=== PATIENT | male | born 1980 | race Caucasian/White ===

== ENCOUNTER 2017-08-04 14:19 | Emergency (ER) | payer OTHER ==
[2017-08-04] MEDS ORDERED: Diphtheria,Pertussis(Acell),Tetanus Vaccine 0.5 ML SDV IM ONE (14:27)
[2017-08-04] MEDS ORDERED: Lidocaine 2% 20 ML MDV SUBCUT ONE (14:30)
--- NOTE | 2017-08-04 14:39 | EDM.PDOC ---
ED HPI GENERAL MEDICAL PROBLEM - General Chief Complaint: Upper Extremity Injury/Pain Stated Complaint: NAIL THROUGH RT POINTER FINGER Time Seen by Provider: 08/04/17 14:30 Source of Information: Reports: Patient History Limitations: Reports: No Limitations - History of Present Illness INITIAL COMMENTS - FREE TEXT/NARRATIVE: 36 yo male presents with a nail in his R index finger from a work related accident. Not UTD on tetanus. Pain is not excessive. 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) Right Hand Pain Score (Numeric/FACES): 2 - Related Data Allergies Allergy/AdvReac Type Severity Reaction Status Date / Time No Known Allergies Allergy Verified 08/04/17 14:28 Home Meds: Home Meds NK [No Known Home Meds] 08/04/17 [History] Review of Systems - Review of Systems Review Of Systems: See Below Constitutional: Reports: No Symptoms Musculoskeletal: Reports: No Symptoms Skin: Reports: Wound (puncture wound through R index finger) Neurological: Reports: No Symptoms ED EXAM, GENERAL - Physical Exam Exam: See Below Exam Limited By: No Limitations General Appearance: Alert, WD/WN, No Apparent Distress Extremities: Other (Foreign body impaled in R index finger(nail).). No: Limited Range of Motion Neurological: Alert, Oriented, CN II-XII Intact, Normal Cognition, No Motor/ Sensory Deficits Psychiatric: Normal Affect, Normal Mood Skin Exam: Warm, Dry, Normal Color, No Rash, Wound/Incision (puncture from a nail that remains in the R index finger.) ED TRAUMA EXTREMITY PROCEDURES - Foreign Body Removal Consent Obtained: Patient Performing Doctor:: Irwin Hernandez Foreign Body Other Location Comment:: R index finger Anesthesia Type: Local (2% lidocaine) Complications:: No Comments:: Nail penetrated finger lateral to the bone. After achieving anesthesia the nail/ entrance/exit wounds were all prep'd with Betadine. The nail was then pulled out. The wound recleaned, and a dressing was applied. Adacel IM was given. Course - Vital Signs Last Recorded V/S: Last Vital Signs Temp 35.5 C 08/04/17 14:33 Pulse 60 08/04/17 14:33 Resp 16 08/04/17 14:33 BP 144/77 H 08/04/17 14:33 Pulse Ox 96 08/04/17 14:33 - Orders/Labs/Meds Orders: Active Orders 24 hr Category Date Time Status Vaccines to be Administered [RC] PER UNIT ROUTINE Care 08/04/17 14:27 Active Meds: Medications Discontinued Medications Generic Name Dose Route Start Last Admin Trade Name Edwina PRN Reason Stop Dose Admin Diphtheria/Tetanus/Acell Pertussis 0.5 ml 08/04/17 14:27 08/04/17 14:41 Adacel IM 08/04/17 14:28 0.5 ml .ONCE ONE Administration Lidocaine HCl 5 ml 08/04/17 14:30 08/04/17 14:40 Xylocaine 2% SUBCUT 08/04/17 14:31 5 ml ONETIME ONE Administration Departure - Departure Time of Disposition: 15:00 Disposition: Home, Self-Care 01 Condition: Good Clinical Impression: Foreign body Puncture wound of finger Qualifiers: Encounter type: initial encounter Qualified Code(s): S61.239A - Puncture wound without foreign body of unspecified finger without damage to nail, initial encounter - Discharge Information Referrals: PCP,None [Primary Care Provider] - Forms: ED Department Discharge Additional Instructions: Leave today's dressing on until tomorrow morning, then clean wound twice a day with soap and water. Dry the wound. Apply Bacitracin ointment and a new dressing. Keep wound clean x 3 days. Keep elevated today and tonight. Take acetaminophen and/or ibuprofen as needed for pain relief. Wound recheck in the clinic in 2 days. - My Orders Last 24 Hours: My Active Orders 08/04/17 14:27 Vaccines to be Administered [RC] PER UNIT ROUTINE - Assessment/Plan Last 24 Hours: My Active Orders 08/04/17 14:27 Vaccines to be Administered [RC] PER UNIT ROUTINE
== END 2017-08-04 15:03 | disposition home or self-care (01) ==
LOC: JP.ED 14:19
DX: S61.240A Puncture wound with foreign body of right index finger without damage to nail, initial encounter (principal); Z23 Encounter for immunization; W45.0XXA Nail entering through skin, initial encounter; Y99.0 Civilian activity done for income or pay
CPT/HCPCS: 90471; 90715; 99283-25